=== PATIENT | female | born 2000 | race Caucasian/White ===

== ENCOUNTER 2018-05-11 18:45 | Emergency (ER) | payer OTHER ==
[~2018-05-11] VITALS: Ht 160 cm; Wt 54.9 kg
[2018-05-11 18:52] VITALS: Ht 160 cm; Wt 54.9 kg
[2018-05-11 21:09] VITALS: BP 123/98
== END 2018-05-11 21:09 | disposition home or self-care (01) ==
LOC: ED 18:45
DX: S09.90XA Unspecified injury of head, initial encounter (principal); W22.8XXA Striking against or struck by other objects, initial encounter; Y93.89 Activity, other specified; Y92.89 Other specified places as the place of occurrence of the external cause; Y99.8 Other external cause status